=== PATIENT | female | born 1950 ===

== ENCOUNTER 2019-03-29 05:15 | Day surgery (SDC) | payer OTHER ==
[~2019-03-29] VITALS: Ht 157.5 cm; Wt 69.4 kg
[~2019-03-29 05:15] MED LIST: ADULT ASPIRIN81 MG PO; ALTACE5 MG PO; EFFEXOR XR75 MG PO; PRAVASTATIN SOD20 MG PO; VASOFLEX SOFTG1 EACH PO
[2019-03-29] MEDS ORDERED: PERCOCET 5-3251 EACH PO (08:57)
== END 2019-03-29 11:30 | disposition home or self-care (01) ==
LOC: CIR.AMB 05:15
DX: D35.1 Benign neoplasm of parathyroid gland (principal)